=== PATIENT | female | born 1945 | race Two or more races ===

== ENCOUNTER 2018-06-14 10:32 | Outpatient (CLI) | payer OTHER | END 2018-06-14 17:00 | disposition home or self-care (01) | LOC: TOM 10:32 | DX: J43.2 Centrilobular emphysema (principal); R91.1 Solitary pulmonary nodule ==

== ENCOUNTER 2025-02-27 11:29 | Outpatient (CLI) | payer OTHER | END 2025-02-27 11:34 | disposition home or self-care (01) | LOC: TOM 11:29 | PROVIDERS: ATTEND Otolaryngology Otolaryngology/Facial Plastic Surgery | DX: H70.11 Chronic mastoiditis, right ear (principal); J31.0 Chronic rhinitis ==

== ENCOUNTER 2025-03-28 11:18 | Outpatient (CLI) | payer OTHER | END 2025-03-28 11:21 | disposition home or self-care (01) | LOC: SONOGRAMA 11:18 | DX: M25.541 Pain in joints of right hand (principal) ==